=== PATIENT | female | born 1985 | race Hispanic/Latino ===

== ENCOUNTER 2020-04-11 05:30 | Day surgery (SDC) | payer OTHER ==
[2020-04-10 12:44] LABS: BASOPHILS % (AUTO) 0.4 % (0.0-5.0); EOSINOPHILS % (AUTO) 1.1 % (0.0-8.0); HEMATOCRIT 39.1 % (36-48); LYMPHOCYTES % (AUTO) 22.4 % (21.0-51.0); MEAN CORPUSCULAR HEMOGLOBIN 26.9 pg (27.0-33.0); MEAN CORPUSCULAR HGB CONC 32.2 g/dL (32.0-36.0); MEAN CORPUSCULAR VOLUME 83.5 fL (79-99); MONOCYTES % (AUTO) 5.9 % (3.0-13.0); NEUTROPHILS % (AUTO) 69.9 % (40.0-77.0); PLATELET COUNT (AUTO) 378 K/uL (130-400); RED BLOOD CELL COUNT(AUTO) 4.68 MIL/uL (4.00-5.50); RED CELL DISTRIBUTION WIDTH 14.1 % (11.0-15.5); WHITE BLOOD COUNT (AUTO) 9.5 K/uL (4.8-10.8)
[2020-04-10 13:42] VITALS: BP 144/72
[2020-04-11] VITALS (18 sets, daily range): BP systolic 115–160; BP diastolic 62–79
[~2020-04-11] VITALS: Ht 164.1 cm; Wt 108.5 kg
[~2020-04-11 05:30] MED LIST: LEVO1TAB57 PO
[2020-04-11] MEDS ORDERED: LACTATED RINGERS 1000ML 1,000 ML IV ONE (05:59)
[2020-04-11] MEDS ORDERED: ROCURONIUM 10MG/1ML SYR 10 MG/ML ML ONE (06:18)
[2020-04-11] MEDS ORDERED: LIDOCAINE PF 2% 5ML ABBOJECT ONE (06:18)
[2020-04-11] MEDS ORDERED: FENTANYL CITRATE PF 50 MCG/1 ML 5ML AMP IV ONE (06:18)
[2020-04-11] MEDS ORDERED: MIDAZOLAM HCL 1 MG/ML 2ML VIAL ONE (06:18)
[2020-04-11] MEDS ORDERED: PROPOFOL 10 MG/ML 20ML VIAL IV ONE (06:18)
[2020-04-11] MEDS ORDERED: KETOROLAC TROMETHAMINE 30MG/ML ONE (07:36)
[2020-04-11] MEDS ORDERED: MEPERIDINE-PF 25 MG/ML SYG ONE ×2 (07:44→07:54)
--- NOTE | 2020-04-11 09:30 | NUR ---
CALLED DOCTOR [facility] OFFICE AND SPOKE TO HARMAN KARIMI DISH WASHER ABOUT HOME MEDICATIONS, PT IS TAKING ORAL CONTRACEPTIVE AND PER BODY WELDER OKAY TO STOP , SHOULD PATIENT HAVE QUESTIONS , SHE COULD CALL OFFICE.
== END 2020-04-11 09:30 ==
LOC: DAH 05:30
PROVIDERS: ATTEND Obstetrics & Gynecology
DX: Z30.2 Encounter for sterilization (principal); D25.9 Leiomyoma of uterus, unspecified; Z20.828 Contact with and (suspected) exposure to other viral communicable diseases
CPT/HCPCS: 36415; 58670; 84703; 85025; 86850; 86900; 86901; A4215; A4216; A4221; A4222; A4223 ×3; A4351; A4452; A4606 ×2; A4663; A6260; C1769 ×2; C9803; J1885; J2001; J2175 ×2; J2250; J2704; J3010; J7120; U0003